=== PATIENT | male | born 1945 ===

== ENCOUNTER 2025-03-04 13:07 | Inpatient (IN) | payer MEDICARE, SELFPAY ==
[2025-03-04 13:40] VITALS: BP 136/87; PULSE 79; RESP 18; TEMP 36.7; O2SAT 95
[2025-03-04 13:52] VITALS: BMI 24.6
--- NOTE | 2025-03-04 15:00 | PC.ADMIT ---
Addendum entered by Aruna Foster RN 03/04/25 19:10: Patient stated that he had episodes of high blood pressure but I didn't find the actual HTN diagnosis. He also has CAD. Original Note: 80 year old male admitted to 186-2 at 1340 from [facility] for Delusions, AMS and Paranoia. He is a CV. He believes that he has created a serious problem with his computer and phone that he can prove it. He thinks that he can blow up cell phones around the world. He is preoccupied with the computer, phones and TV'S. He is alert and oriented x3 with some insight into his issues, saying that he has some dementia. He denies delusions, anxiety and depression. He is very talkative. His eye contact is good and he is responsive, laughing and smiling. He would like to get better and go back home. He also has Hx of HTN and Hyperlipidemia. HX [place] in 1992 and 1994. He is forgetful but pleasant. He ambulates independently and is continent of bowel and bladder. He denies pain, SI, Hi and and behavioral problems. His appearance is disheveled and he is dressed in [facility]. He was oriented to the unit, signed all ANIL and Patient Valuable List. He has allergies to Shellfish products and Niacin. Colette Gustafson QC CHEMIST updated on patient's arrival. He never smoked and occasionally drinks alcohol. Vitals [id number]/87 with O2 Sat 95% on room air. Weight 77.9kg and height 5'10 .
--- OUTSIDE RECORDS SUMMARY | 2025-03-04 15:29 | XMS_ITS | Encounter Summary ---
Author Organization [facility] Address [address] [place] [address] Care Team Providers Care Biology Research Assistant Name Role Phone Daniel Thomas MD Unavailable Alejandra Prince MD Primary Care Provider Dean Conley MD Unavailable [phone] Opal Soto MD Unavailable Alejandra Prince MD Unavailable [phone] Alejandra Prince MD Unavailable [phone] Encounter Details Date Type Department Care Team (Latest Contact Info) Description 03/03/2025 Travel Social History Tobacco Use Types Packs/Day Years Used Date Smoking Tobacco: Never Smokeless Tobacco: Never Alcohol Use Standard Drinks/Week Comments Yes 0 (1 standard drink = 0.6 oz pur e alcohol) infrequently, 1 per month Humiliation, Afraid, Rape, and Kick questionnair e Answer Date Recorded Within the last year, have y ou been afraid of your partner or ex-partner? No 03/03/2025 Emotionally Abused Not on file 03/03/2025 Physically Abused Not on file 03/03/2025 Sexually Abused Not on file 03/03/2025 Overall Financial Resource Strain (CARDIA) Answe r Date Recorded How hard is it for you to pa y for the very basics like food, housing, medical care, and heating? Not hard at all 03/03/2025 Hunger Vital Sign Answer Date Recorded Within the past 12 months, y ou worried that your food would run out before you got the money to buy more. Never true 03/03/20 25 Ran Out of Food in the Last Year Not on file 03/03/2025 PRAPARE - Transportation Answer Date Re corded In the past 12 months, has l ack of transportation kept you from medical appointments or from getting medications? No 02/09 In the past 12 months, has l ack of transportation kept you from meetings, work, or from getting things needed for daily living? No 03/03/2025 Housing Stability Vital Sign Answer Rehan e Recorded In the last 12 months, was t here a time when you were not able to pay the mortgage or rent on time? No 03/03/2025 Number of Times Moved in the Last Year Not on fi le 03/03/2025 At any time in the past 12 m [facility], were you homeless or living in a prison (including now)? No 03/03/2025 [facility] Utilities Answer Date Recorded In the past 12 months has th e [employer], gas, oil, or water company threatened to shut off services in your home? No 03/03/2025 Food Insecurity Answer Date Recorded Within the past 12 months, y ou worried that your food would run out before you got the money to buy more. Never true 03/03/20 25 Ran Out of Food in the Last Year Not on file 03/03/2025 Intimate Partner Violence Answer Date R ecorded Emotionally Abused Not on file 03/03/2025 Within the last year, have y ou been afraid of your partner or ex-partner? No 03/03/2025 Physically Abused Not on file 03/03/2025 Sexually Abused Not on file 03/03/2025 Housing Stability Answer Date Recorded Unstable Housing in the Last Year Not on file 03/03/2025 In the last 12 months, was t here a time when you were not able to pay the mortgage or rent on time? No 03/03/2025 Number of Places Lived in the Last Year Not on f ile 03/03/2025 AUDIT C Answer Date Recorded How often have you had a dri nk containing alcohol, in the past year? 1 03/03/2025 How many standard drinks con taining alcohol have you had on a typical day when you are drinking, in the past year? 0 0 03/03/2025 How often have you had six o r more drinks on one occasion, in the past year? 0 03/03/2025 Sex and Gender Information Value Date Recorded Sex Assigned at Male 01/02/2019 12:58 PM EDT Legal Sex Male 8:56 AM EDT Gender Identity Male 01/02/2019 12:58 PM EDT Sexual Orientation Not on file documented as of this encounter Functional Status * Is the person deaf or does he/she have serious difficulty hearing? Answer Date of Assessment Author Yes 09/07/2024 2:52 PM EST documented as of this encounter Plan of Treatment Upcoming Encounters Date Type Department Care Team (Late st Contact Info) Description 06/16/2025 3:00 PM EDT Appointment [facility] Cardiology Testing, [address] [address] Dar Serna MD [address] [place] [id number] with Resource 06/19/2025 10:00 AM EDT Office Visit [facility], [address] [address] Dar Serna MD [address] [place] [id number] In Person with Physician 09/07/2025 10:00 AM EST Office Visit [facility] [address] [place] [address] Karey Archer NP [address] [place] [address] In Person with Nurse Practitioner documented as of this encounter Visit Diagnoses Not on filedocumented in this encounter Care Teams Biology Research Assistant Relationship Specialty Start Date End Date Alejandra Prince MD [address] [place] [address] PCP - General Internal Medicine 6/9/21 Alejandra Prince MD [address] [place] [address] PCP - Insurance Assigned PCP 10/19/22 Daniel Thomas MD 01/01/19 Dean Conley MD [address] [facility] [place] [address] Referring Physician Hematology/Oncology 05/23/21 Opal Soto MD [address] [place] [address] [address] [place] [address] Referring Physician Gastroenterology 10/23/21 Alejandra Prince MD [address] [place] [address] Internal Medicine 02/16/21 documented as of this encounter
--- NOTE | 2025-03-04 18:36 | PC.NURSE ---
overcoiler completed on admission, skin clear, no issues. Patient also stated that he had a sleep apnea test which was positive but he tried using a CPAP and didn't like it because it was too cumbersome, so he stopped using it. His appetite has been poor and when he was so involved with his computer he would forget to eat. He also wasn't bathing and brushing his teeth because of his high anxiety about the computer and problems that he caused. At one point he used a cane at home for an unstable gait but he does not use one now.
[2025-03-04 20:00] VITALS: BP 161/91; PULSE 85; RESP 18; TEMP 36.6; O2SAT 97
[2025-03-05 08:13] VITALS: BP 140/62; PULSE 85; RESP 18; TEMP 36.4; O2SAT 97
[2025-03-05 08:35] LABS: Hemoglobin A1C 169.7411 umol/L; Total Hemoglobin (HGBA1C) 4476.0912 umol/L
[2025-03-05] MEDS: Metoprolol Succinate ER 25 MG TAB.ER.24H PO (08:35)
[2025-03-05 08:41] LABS: Alanine Aminotransferase 22 U/L (0-40); Albumin Level 4.0 g/dL (3.5-5.0); Alkaline Phosphatase 72 U/L (39-117); Anion Gap 14 (12-20); Aspartate Amino Transferase 28 U/L (5-37); Blood Urea Nitrogen 20 mg/dL (9-16); Calcium 9.5 mg/dL (8.4-10.2); Carbon Dioxide 25 mmol/L (22-29); Chloride 105 mmol/L (96-108); Cholesterol 116 mg/dL (<200); Creatinine Clr Calc Pharmacy 55.2; Estimated Glomerular Filt Rate > 60; HDL Cholesterol 53 mg/dL (>40); Potassium 3.9 mmol/L (3.3-5.1); Sodium 140 mmol/L (135-145); Total Protein 7.5 g/dL (6.5-8.0); Triglycerides 112 mg/dL (<150)
[2025-03-05 08:57] LABS: Thyroid Stimulating Hormone 1.60 uIU/mL (0.32-4.0)
[2025-03-05 09:12] LABS: Folate 12.5 ng/mL (> or = 4.0); Vitamin B12 909 pg/mL (200-900)
--- NOTE | 2025-03-05 09:12 | HO.PSYADMNOT ---
HPI Date of Service: 03/05/25 Chief Complaint: Delusional d/o Sources of Information: patient interviewed, chart reviewed and crisis/core team assessment reviewed HPI Subjective Notes: Chau Warning and Conditional Voluntary Narrative: Mr. Qiu is a 80 year-old male with hx of vascular dementia who was brought to [facility] as he was presenting with delusions of being able to control world events such as conflict between [place] and [place], and blood pressure machines in the hospital and TV. He does not have prior hx of mental illness or psychosis. In the ED, pt had reported that he was involved in cyber investigations and beliving that he is the cause of the war. Pertinent labs include CBC with mildly elevated WBC (11), CMP no electrolyte abnormalities, Cr. 1.10, BUN 20, LFTs wnl. UA without signs of UTI. TSH 1.76. EKG sinus rhythm, Qtc 447. On the unit, pt presents as very pleasant and cooperative. He reports he has been very concern with world events including [place] attacks on [place], and now [place]. He reports he is Rastafari and lived in [place]. He also reports he has a masters degree in History and [employer]. He reports he has been tracing recent commentaries of world leaders and could see a trail leading up to bombing of the [place] to [place]. When asked if he believes he caused this conflict, he denies. He does say that it has impacted him in a personal way and he feels saddened by world events. 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 He does report he can be obsessive when it comes to reading news outlets and following international press news. He denies SI/HI. He denies VH/AH. He does report some memory decline and being more forgetful. He reports he needs more support from his children. He currently lives with his daughter. No prior psychiatric hx. No hx of suicide attempt. He has never been on psychotropic medications. He was started at [facility] on risperidone. Past Psychiatric History: Inpt: none OP: none Past medication trials: recently started on risperidone. Medical Evaluation Reviewed: Yes [facility] Family History: father schizophrenia Social History: Pt born in [place], [place]. He was for almost 50 years until of covid 4 years ago. He has two adult children, daughter and son. He work as computer assistant. He has a masters in computer science and History. Substance History: none Trauma History: denies Diagnostics Vital Signs (24Hr): Vital Signs - 24 hr 03/04/25 13:40 03/04/25 20:00 03/05/25 08:13 Temperature 98.1 F 97.8 F 97.5 F Pulse Rate 79 85 85 Respiratory Rate 18 18 18 Blood Pressure 136/87 161/91 H 140/62 H Pulse Oximetry 95 97 97 Oxygen Delivery Method Room Air Room Air Room Air BMI result Body Mass Index 24.6 Labs 03/05/25 07:41 Labs: Laboratory Results - last 48 hr 03/05/25 07:41 Sodium 140 Potassium 3.9 Chloride 105 Carbon Dioxide 25 Anion Gap 14 BUN 20 H Creatinine 1.12 Estim Creat Clear Calc 55.2 Estimated GFR > 60 Random Glucose 104 Estimat Average Glucose 114 Hemoglobin A1c % 5.6 Calcium 9.5 Total Bilirubin 1.0 AST 28 ALT 22 Alkaline Phosphatase 72 Total Protein 7.5 Albumin 4.0 Triglycerides 112 Cholesterol 116 LDL Cholesterol, Calc 41 HDL Cholesterol 53 Vitamin B12 909 H Folate 12.5 TSH 1.60 Meds/Allergies Meds Home Medications ?Medication ?Instructions ?Recorded ?Confirmed ?Type aspirin 81 mg PO 1XD 03/04/25 03/04/25 History atorvastatin 20 mg tablet (Lipitor) mg PO Hyperlipidemia 03/04/25 History metoprolol succinate 25 mg 25 mg PO DAILY 03/04/25 03/04/25 History tablet,extended release 24 hr risperidone 0.25 mg PO BID Psychosis 03/04/25 03/04/25 History simvastatin 40 mg tablet 40 mg PO BEDTIME 03/04/25 03/04/25 History Allergies Allergies Allergy/AdvReac Type Severity Reaction Status Date / Time niacin Allergy Unknown Verified 03/04/25 15:23 shellfish derived Allergy Unknown Verified 03/04/25 15:23 Mental Status Exam Mental Status Exam Narrative: Appearance: wearing casual clothing, fair hygiene, in NAD behavior: cooperative, friendly Psychomotor: no agitation or retardation noted Speech: clear, talkative, but not pressured, spontaneous TP:tangential TC: feeling well here, open to assessment Mood: good Affect: congruent SI: none HI: none VH/AH: no overt signs Delusions: no overt delusional content Insight/judgment: fair x 2, Memory/cog: alert, oriented to place, month, year. MOCA , ACL 3.6 Assessment & Plan Assessment & Plan (1) Vascular dementia with behavior disturbance: Status: Acute Code(s): F01.518 - Vascular dementia, unspecified severity, with other behavioral disturbance Plan Mr. Lau is a 80 year-old male with hx of vascular dementia, who was brought on 03/03 to [facility] due to increase delusional ideas of being responsible for world events and being able to change number in pressure machine at the hospital. He was started on risperidone while at [facility]. He currently does not present with delusions. He is focused on world events and seems to have in depth grasp about given his personal experience and background in history. It is possible more delusional connection to world events has decrease since started on risperidone. MOCA/ACL show moderate/severe cognitive impairments in high functions of the brain that include executive function. PLAN 1. Admit to S1, CV, 15 minutes checks 2. continue risperidone. 3. obtain collateral information 4. Aftercare planning Patient educated on: diagnosis and medication risk/benefits Reason for continued inpatient stay Substantial Risk for: inability to function Statement Statement: I have reviewed the history and physical and performed a pertinent examination on my patient. No changes have occurred unless specified. If the History and Physical was not performed prior to admission, the Hospitalist's service will be consulted for completing the admission physical. Time Spent With Patient Time: Total time managing care of this patient today ____ minutes.
--- NOTE | 2025-03-05 11:38 | HO.PM.IMCN ---
History of Present Illness Data of Consult Service Date: 03/05/25 Primary Care Provider: Unknown Physician HPI Reason for consult: Medical management 80-year-old male with past medical history of coronary artery disease, chronic degenerative disc disease, depression, history of nephrolithiasis, hyperlipidemia, low back pain, history of NH and cardiac catheterization in 1994, ataxia, ODILON, secondary polycythemia, cognitive impairment. Presented to [facility] with increased paranoia and delusions. His lab work was unremarkable, TSH within normal limits, tox screen was negative. He is admitted to [facility] for further care. Review of Systems Review of Systems: Denies any shortness of breath, chest pain, dizziness, lightheadedness, abdominal pain or discomfort, nausea vomiting or diarrhea PMFSH Social History Household Members: Children Housing: [facility] Do you presently have visiting nurse or other home services: No (Patient recently has not been attending to his ADL'S, has poor appetite.) Patient Tobacco Use Status: Never used Tobacco Smoked in Last 30 Days: No e-Cigarette/Vaping Use: Never Used Patient Interested in Nicotine Replacement: No Patient Given Instructions on How to Stop Smoking: No Second Hand Smoke Exposure: No Currently Displaying Signs/Symptoms of Drug Intoxication Withdrawal: No Have you been hit, kicked, punched, or otherwise hurt by someone within the past year? If so, by whom?: No Do you feel safe in your current relationship?: Yes Is there a partner from a previous relationship who is making you feel unsafe now?: No Are you made to feel afraid or neglected: No [facility] Practices: [facility] Advance Directives: No Advance Directives Information Provided: Yes Do you have thoughts of harming others: None Do you have a plan to hurt others: No Plan Recently lost weight without trying: No Eating poorly because of decreased appetite: Yes Nutrition Risks: No Nutritional Risk Poor oral hygiene: Yes Meds Allergies Allergy/AdvReac Type Severity Reaction Status Date / Time niacin Allergy Unknown Verified 03/04/25 15:23 shellfish derived Allergy Unknown Verified 03/04/25 15:23 Active Medications: Current Medications Acetaminophen (Acetaminophen 325 Mg Tablet) 650 mg PO Q6H PRN PRN Reason: Headache/Pain, Scale 1-10 Al Hydroxide/Mg Hydroxide (Magnesium Hydrox/Alum Hydrox 30 Ml Oral.Susp) 30 ml PO Q6H PRN PRN Reason: Heartburn/Nausea Aspirin (Aspirin 81 Mg Tab.Chew) 81 mg PO DAILY [facility] Last Admin: 03/05/25 08:35 Dose: 81 mg Atorvastatin Calcium (Atorvastatin Calcium 20 Mg Tablet) 20 mg PO BEDTIME [facility] Last Admin: 03/04/25 20:35 Dose: 20 mg Magnesium Hydroxide (Milk Of Magnesia 30 Ml Oral.Susp) 30 ml PO DAILY PRN PRN Reason: Constipation Metoprolol Succinate (Metoprolol Succinate Er 25 Mg Tab.Er.24h) 25 mg PO DAILY [facility]; Protocol Last Admin: 03/05/25 08:35 Dose: 25 mg Risperidone (Risperidone 0.25 Mg Tablet) 0.25 mg PO BID [facility] Last Admin: 03/05/25 08:35 Dose: 0.25 mg Trazodone HCl (Trazodone Hcl 50 Mg Tablet) 50 mg PO BEDTIME PRN PRN Reason: Insomnia Home Medications ?Medication ?Instructions ?Recorded ?Confirmed ?Last Taken ?Type aspirin 81 mg PO 1XD 03/04/25 03/04/25 Unknown History atorvastatin 20 mg tablet (Lipitor) mg PO Hyperlipidemia 03/04/25 Unknown History metoprolol succinate 25 mg 25 mg PO DAILY 03/04/25 03/04/25 Unknown History tablet,extended release 24 hr risperidone 0.25 mg PO BID Psychosis 03/04/25 03/04/25 Unknown History simvastatin 40 mg tablet 40 mg PO BEDTIME 03/04/25 03/04/25 Unknown History Physical Exam Vital Signs and Narrative: Vital Signs: Last Vital Signs Temp 97.5 F 03/05/25 08:13 Pulse 85 03/05/25 08:13 Resp 18 03/05/25 08:13 BP 140/62 H 03/05/25 08:13 Pulse Ox 97 03/05/25 08:13 O2 Del Method Room Air 03/05/25 08:13 BMI result Body Mass Index 24.6 CONST: Alert and oriented, in NAD. Well nourished HEENT: Normocephalic, atraumatic, MMM, Eyes clear, Neck supple RESP: Lungs clear, RRR even and regular HEART:,RRR, S1, S2. No edema GI:Abdomen Soft NT, ND. + BS times four :Deferred SKIN: Warm dry and intact, no visible lesions or rashes NEURO:CN II-XII Intact bilaterally, Sensation intact. Speech clear PSYCH: Normal affect Results Labs 03/05/25 07:41 Labs: Laboratory Results - last 24 hr 03/05/25 07:41 Anion Gap 14 Estim Creat Clear Calc 55.2 Estimated GFR > 60 Random Glucose 104 Estimat Average Glucose 114 Hemoglobin A1c % 5.6 Calcium 9.5 Total Bilirubin 1.0 AST 28 ALT 22 Alkaline Phosphatase 72 Total Protein 7.5 Albumin 4.0 Triglycerides 112 Cholesterol 116 LDL Cholesterol, Calc 41 HDL Cholesterol 53 Vitamin B12 909 H Folate 12.5 TSH 1.60 Assessment and Plan (1) HTN (hypertension): Status: Acute Plan Depression, cognitive impairment, paranoia and delusions Treatment per psychiatric team Coronary artery disease, hypertension, hyperlipidemia Continue atorvastatin, metoprolol and aspirin Thank you for allowing me to participate in the care of this patient. We will follow as needed. Please reconsult of any acute concerns or issues arise
[2025-03-05 13:20] VITALS: BMI 25.0
[2025-03-05 19:55] VITALS: BP 139/71; PULSE 76; RESP 16; TEMP 36.1; O2SAT 98
[2025-03-06 08:00] VITALS: BP 160/95; PULSE 88; RESP 16; TEMP 36.6; O2SAT 98
[2025-03-06] MEDS: Metoprolol Succinate ER 25 MG TAB.ER.24H PO (08:47)
--- NOTE | 2025-03-06 12:00 | HO.PSYCHPN ---
Subjective Subjective Date of Service: 03/06/25 Reason For Visit: Delusional d/o Subjective Notes: Conditional Voluntary Interim History: Pt slept through the night. he reports doing well, feeling better. No SI/HI. No overt psychosis. no delusions. He does report some connection between algorithm of internet connected with food orders here in the hospital. He is pleasant on approach. no behavioral concerns. Review of Systems Review of Systems Denies any shortness of breath, chest pain, dizziness, lightheadedness, abdominal pain or discomfort, nausea vomiting or diarrhea Mental Status Exam Mental Status Exam Narrative: Appearance: wearing casual clothing, fair hygiene, in NAD behavior: cooperative, friendly Psychomotor: no agitation or retardation noted Speech: clear, talkative, but not pressured, spontaneous TP:tangential TC: feeling well here, open to assessment Mood: good Affect: congruent SI: none HI: none VH/AH: no overt signs Delusions: no overt delusional content Insight/judgment: fair x 2, Memory/cog: alert, oriented to place, month, year. MOCA , ACL 3.6 Diagnostics Vital Signs (24Hr): Vital Signs - 24 hr 03/05/25 19:55 Temperature 96.9 F Pulse Rate 76 Respiratory Rate 16 Blood Pressure 139/71 Pulse Oximetry 98 Oxygen Delivery Method Room Air BMI result Body Mass Index 25.0 Labs 03/05/25 07:41 Labs: Laboratory Results - last 48 hr 03/05/25 07:41 Sodium 140 Potassium 3.9 Chloride 105 Carbon Dioxide 25 Anion Gap 14 BUN 20 H Creatinine 1.12 Estim Creat Clear Calc 55.2 Estimated GFR > 60 Random Glucose 104 Estimat Average Glucose 114 Hemoglobin A1c % 5.6 Calcium 9.5 Total Bilirubin 1.0 AST 28 ALT 22 Alkaline Phosphatase 72 Total Protein 7.5 Albumin 4.0 Triglycerides 112 Cholesterol 116 LDL Cholesterol, Calc 41 HDL Cholesterol 53 Vitamin B12 909 H Folate 12.5 TSH 1.60 Medications Medications Current Medications Acetaminophen (Acetaminophen 325 Mg Tablet) 650 mg PO Q6H PRN PRN Reason: Headache/Pain, Scale 1-10 Al Hydroxide/Mg Hydroxide (Magnesium Hydrox/Alum Hydrox 30 Ml Oral.Susp) 30 ml PO Q6H PRN PRN Reason: Heartburn/Nausea Aspirin (Aspirin 81 Mg Tab.Chew) 81 mg PO DAILY [facility] OF [facility] Last Admin: 03/06/25 08:47 Dose: 81 mg Atorvastatin Calcium (Atorvastatin Calcium 20 Mg Tablet) 20 mg PO BEDTIME ON [facility] OF [facility] Last Admin: 03/05/25 19:43 Dose: 20 mg Magnesium Hydroxide (Milk Of Magnesia 30 Ml Oral.Susp) 30 ml PO DAILY PRN PRN Reason: Constipation Metoprolol Succinate (Metoprolol Succinate Er 25 Mg Tab.Er.24h) 25 mg PO DAILY [facility]; Protocol Last Admin: 03/06/25 08:47 Dose: 25 mg Risperidone (Risperidone 0.25 Mg Tablet) 0.25 mg PO BID [facility] Last Admin: 03/06/25 08:47 Dose: 0.25 mg Trazodone HCl (Trazodone Hcl 50 Mg Tablet) 50 mg PO BEDTIME PRN PRN Reason: Insomnia Allergies Allergies Allergy/AdvReac Type Severity Reaction Status Date / Time niacin Allergy Unknown Verified 03/04/25 15:23 shellfish derived Allergy Unknown Verified 03/04/25 15:23 Assessment & Plan Assessment & Plan (1) Vascular dementia with behavior disturbance: Status: Acute Code(s): F01.518 - Vascular dementia, unspecified severity, with other behavioral disturbance Plan Mr. Lau is a 80 year-old male with hx of vascular dementia, who was brought on 03/03 to [facility] due to increase delusional ideas of being responsible for world events and being able to change number in pressure machine at the hospital. He was started on risperidone while at [facility]. He currently does not present with delusions. He is focused on world events and seems to have in depth grasp about given his personal experience and background in history. It is possible more delusional connection to world events has decrease since started on risperidone. MOCA/ACL show moderate/severe cognitive impairments in high functions of the brain that include executive function. PLAN continue tx. Reason for continued inpatient stay Substantial Risk for: inability to function Time Spent With Patient Time: Total time managing care of this patient today ____ minutes.
[2025-03-06 19:55] VITALS: BP 179/83; PULSE 73; RESP 16; TEMP 36.8; O2SAT 100
[2025-03-07 08:00] VITALS: PULSE 86; RESP 14; TEMP 2.3; TEMP 36.2; O2SAT 96
[2025-03-07 09:09] VITALS: BP 163/83; PULSE 86; RESP 16; TEMP 2.3; TEMP 36.2
[2025-03-07] MEDS: Metoprolol Succinate ER 25 MG TAB.ER.24H PO (09:11)
--- NOTE | 2025-03-07 19:24 | HO.PSYCHPN ---
Subjective Subjective Date of Service: 03/07/25 Reason For Visit: Delusional d/o Subjective Notes: Conditional Voluntary Interim History: Pt slept through the night.He has been visible on the unit, social with select peers. he reports doing well, feeling better. No SI/HI. No overt psychosis. no delusions. He does report some connection between [facility] of internet connected with food orders here in the hospital. He is pleasant on approach. no behavioral concerns. Review of Systems Review of Systems Denies any shortness of breath, chest pain, dizziness, lightheadedness, abdominal pain or discomfort, nausea vomiting or diarrhea Mental Status Exam Mental Status Exam Narrative: Appearance: wearing casual clothing, fair hygiene, in NAD behavior: cooperative, friendly Psychomotor: no agitation or retardation noted Speech: clear, talkative, but not pressured, spontaneous TP:tangential TC: feeling well here, open to assessment Mood: good Affect: congruent SI: none HI: none VH/AH: no overt signs Delusions: no overt delusional content Insight/judgment: fair x 2, Memory/cog: alert, oriented to place, month, year. MOCA 20/, ACL 3.6 Diagnostics Vital Signs (24Hr): Vital Signs - 24 hr 03/06/25 19:55 03/07/25 08:00 03/07/25 09:09 Temperature 98.3 F 36.2 F L 36.2 F L Pulse Rate 73 86 86 Respiratory Rate 16 14 16 Blood Pressure 179/83 H 163/83 H Pulse Oximetry 100 96 Oxygen Delivery Method Room Air Room Air Room Air BMI result Body Mass Index 25.0 Labs 03/05/25 07:41 Medications Medications Current Medications Acetaminophen (Acetaminophen 325 Mg Tablet) 650 mg PO Q6H PRN PRN Reason: Headache/Pain, Scale 1-10 Al Hydroxide/Mg Hydroxide (Magnesium Hydrox/Alum Hydrox 30 Ml Oral.Susp) 30 ml PO Q6H PRN PRN Reason: Heartburn/Nausea Aspirin (Aspirin 81 Mg Tab.Chew) 81 mg PO DAILY [facility] Last Admin: 03/07/25 09:11 Dose: 81 mg Atorvastatin Calcium (Atorvastatin Calcium 20 Mg Tablet) 20 mg PO BEDTIME [facility] Last Admin: 03/06/25 19:56 Dose: 20 mg Magnesium Hydroxide (Milk Of Magnesia 30 Ml Oral.Susp) 30 ml PO DAILY PRN PRN Reason: Constipation Metoprolol Succinate (Metoprolol Succinate Er 25 Mg Tab.Er.24h) 25 mg PO DAILY [facility]; Protocol Last Admin: 03/07/25 09:11 Dose: 25 mg Risperidone (Risperidone 0.25 Mg Tablet) 0.25 mg PO BID [facility] Last Admin: 03/07/25 09:11 Dose: 0.25 mg Trazodone HCl (Trazodone Hcl 50 Mg Tablet) 50 mg PO BEDTIME PRN PRN Reason: Insomnia Allergies Allergies Allergy/AdvReac Type Severity Reaction Status Date / Time niacin Allergy Unknown Verified 03/04/25 15:23 shellfish derived Allergy Unknown Verified 03/04/25 15:23 Assessment & Plan Assessment & Plan (1) Vascular dementia with behavior disturbance: Status: Acute Code(s): F01.518 - Vascular dementia, unspecified severity, with other behavioral disturbance Plan Mr. Lau is a 80 year-old male with hx of vascular dementia, who was brought on 03/03 to [facility] due to increase delusional ideas of being responsible for world events and being able to change number in pressure machine at the hospital. He was started on risperidone while at [place]. He currently does not present with delusions. He is focused on world events and seems to have in depth grasp about given his personal experience and background in history. It is possible more delusional connection to world events has decrease since started on risperidone. MOCA/ACL show moderate/severe cognitive impairments in high functions of the brain that include executive function. PLAN continue tx. Reason for continued inpatient stay Substantial Risk for: inability to function Time Spent With Patient Time: Total time managing care of this patient today ____ minutes.
[2025-03-07 20:01] VITALS: BP 146/80; PULSE 78; RESP 16; TEMP 36.8; O2SAT 98
[2025-03-08 08:00] VITALS: BP 118/72; PULSE 72; RESP 18; TEMP 36.2; O2SAT 97
[2025-03-08] MEDS: Metoprolol Succinate ER 25 MG TAB.ER.24H PO (08:03)
--- NOTE | 2025-03-08 17:45 | P.PNPSI_ITS ---
Subjective Subjective Date of Service: 03/08/25 Reason For Visit: Delusional d/o Interim History: Pt slept through the night.He has been visible on the unit, social with select peers. he reports doing well, feeling better. No SI/HI. No overt psychosis. no delusions. He does report some connection between [employer] of internet connected with food orders here in the hospital. He is pleasant on approach. no behavioral concerns. Review of Systems Review of Systems Denies any shortness of breath, chest pain, dizziness, lightheadedness, abdominal pain or discomfort, nausea vomiting or diarrhea Mental Status Exam Mental Status Exam Narrative: Appearance: wearing casual clothing, fair hygiene, in NAD behavior: cooperative, friendly Psychomotor: no agitation or retardation noted Speech: clear, talkative, but not pressured, spontaneous TP:tangential TC: feeling well here, open to assessment Mood: good Affect: congruent SI: none HI: none VH/AH: no overt signs Delusions: no overt delusional content Insight/judgment: fair x 2, Memory/cog: alert, oriented to place, month, year. MOCA , ACL 3.6 Diagnostics Vital Signs (24Hr): Vital Signs - 24 hr 03/07/25 20:01 03/08/25 08:00 Temperature 98.2 F 97.2 F Pulse Rate 78 72 Respiratory Rate 16 18 Blood Pressure 146/80 H 118/72 Pulse Oximetry 98 97 Oxygen Delivery Method Room Air Room Air BMI result Body Mass Index 25.0 Labs 03/05/25 07:41 Medications Medications Current Medications Acetaminophen (Acetaminophen 325 Mg Tablet) 650 mg PO Q6H PRN PRN Reason: Headache/Pain, Scale 1-10 Al Hydroxide/Mg Hydroxide (Magnesium Hydrox/Alum Hydrox 30 Ml Oral.Susp) 30 ml PO Q6H PRN PRN Reason: Heartburn/Nausea Aspirin (Aspirin 81 Mg Tab.Chew) 81 mg PO DAILY [facility] Last Admin: 03/08/25 08:03 Dose: 81 mg Atorvastatin Calcium (Atorvastatin Calcium 20 Mg Tablet) 20 mg PO BEDTIME [facility] Last Admin: 03/07/25 20:06 Dose: 20 mg Magnesium Hydroxide (Milk Of Magnesia 30 Ml Oral.Susp) 30 ml PO DAILY PRN PRN Reason: Constipation Metoprolol Succinate (Metoprolol Succinate Er 25 Mg Tab.Er.24h) 25 mg PO DAILY [facility]; Protocol Last Admin: 03/08/25 08:03 Dose: 25 mg Risperidone (Risperidone 0.25 Mg Tablet) 0.5 mg PO BID [facility] Trazodone HCl (Trazodone Hcl 50 Mg Tablet) 50 mg PO BEDTIME PRN PRN Reason: Insomnia Last Admin: 03/07/25 20:06 Dose: 50 mg Allergies Allergies Allergy/AdvReac Type Severity Reaction Status Date / Time niacin Allergy Unknown Verified 03/04/25 15:23 shellfish derived Allergy Unknown Verified 03/04/25 15:23 Assessment & Plan Assessment & Plan (1) Vascular dementia with behavior disturbance: Status: Acute Code(s): F01.518 - Vascular dementia, unspecified severity, with other behavioral disturbance Plan Mr. Lau is a 80 year-old male with hx of vascular dementia, who was brought on 03/03 to [facility] due to increase delusional ideas of being responsible for world events and being able to change number in pressure machine at the hospital. He was started on risperidone while at [place]. He currently does not present with delusions. He is focused on world events and seems to have in depth grasp about given his personal experience and background in history. It is possible more delusional connection to world events has decrease since started on risperidone. MOCA/ACL show moderate/severe cognitive impairments in high functions of the brain that include executive function. PLAN 03/08 increase risperidone 0.5mg po BID. Reason for continued inpatient stay Substantial Risk for: inability to function Time Spent With Patient Time: Total time managing care of this patient today ____ minutes.
[2025-03-08 20:00] VITALS: BP 152/67; PULSE 70; RESP 18; TEMP 2.6; TEMP 36.6; O2SAT 97
[2025-03-09 09:07] VITALS: BP 140/91; PULSE 82; RESP 18; TEMP 36.2; O2SAT 98
[2025-03-09] MEDS: Metoprolol Succinate ER 25 MG TAB.ER.24H PO (09:19)
--- NOTE | 2025-03-09 11:14 | HO.PSYCHPN ---
Subjective Subjective Date of Service: 03/09/25 Reason For Visit: Delusional d/o Subjective Notes: Conditional Voluntary Interim History: Pt slept through the night. His mood is euthymic, and he reports feeling well here on the unit. He reports there are a lot of connection between the internet and how this place (referring to the hospital) works. He talks algorith that extrapolate into how food services and other services in the hospital are connected and influenced by his past internet searches which he thinks have given him an advantage while in the hospital because he gets the food that he orders on the paper given every day. Review of Systems Review of Systems Denies any shortness of breath, chest pain, dizziness, lightheadedness, abdominal pain or discomfort, nausea vomiting or diarrhea Mental Status Exam Mental Status Exam Narrative: Appearance: wearing casual clothing, fair hygiene, in NAD behavior: cooperative, friendly Psychomotor: no agitation or retardation noted Speech: clear, talkative, but not pressured, spontaneous TP:tangential TC: feeling well here, open to assessment Mood: good Affect: congruent SI: none HI: none VH/AH: no overt signs Delusions: no overt delusional content Insight/judgment: fair x 2, Memory/cog: alert, oriented to place, month, year. MOCA , ACL 3.6 Diagnostics Vital Signs (24Hr): Vital Signs - 24 hr 03/08/25 20:00 03/09/25 09:07 Temperature 36.6 F L 97.2 F Pulse Rate 70 82 Respiratory Rate 18 18 Blood Pressure 152/67 H 140/91 H Pulse Oximetry 97 98 Oxygen Delivery Method Room Air Room Air BMI result Body Mass Index 25.0 Labs 03/05/25 07:41 Medications Medications Current Medications Acetaminophen (Acetaminophen 325 Mg Tablet) 650 mg PO Q6H PRN PRN Reason: Headache/Pain, Scale 1-10 Al Hydroxide/Mg Hydroxide (Magnesium Hydrox/Alum Hydrox 30 Ml Oral.Susp) 30 ml PO Q6H PRN PRN Reason: Heartburn/Nausea Aspirin (Aspirin 81 Mg Tab.Chew) 81 mg PO DAILY [facility] Last Admin: 03/09/25 09:20 Dose: 81 mg Atorvastatin Calcium (Atorvastatin Calcium 20 Mg Tablet) 20 mg PO BEDTIME [facility] Last Admin: 03/08/25 20:43 Dose: 20 mg Magnesium Hydroxide (Milk Of Magnesia 30 Ml Oral.Susp) 30 ml PO DAILY PRN PRN Reason: Constipation Metoprolol Succinate (Metoprolol Succinate Er 25 Mg Tab.Er.24h) 25 mg PO DAILY [facility]; Protocol Last Admin: 03/09/25 09:19 Dose: 25 mg Risperidone (Risperidone 0.25 Mg Tablet) 0.5 mg PO BID [facility] Last Admin: 03/09/25 09:19 Dose: 0.5 mg Trazodone HCl (Trazodone Hcl 50 Mg Tablet) 50 mg PO BEDTIME PRN PRN Reason: Insomnia Last Admin: 03/07/25 20:06 Dose: 50 mg Allergies Allergies Allergy/AdvReac Type Severity Reaction Status Date / Time niacin Allergy Unknown Verified 03/04/25 15:23 shellfish derived Allergy Unknown Verified 03/04/25 15:23 Assessment & Plan Assessment & Plan (1) Vascular dementia with behavior disturbance: Status: Acute Code(s): F01.518 - Vascular dementia, unspecified severity, with other behavioral disturbance Plan Mr. Lau is a 80 year-old male with hx of vascular dementia, who was brought on 03/03 to [facility] due to increase delusional ideas of being responsible for world events and being able to change number in pressure machine at the hospital. He was started on risperidone while at [place]. He currently does not present with delusions. He is focused on world events and seems to have in depth grasp about given his personal experience and background in history. It is possible more delusional connection to world events has decrease since started on risperidone. MOCA/ACL show moderate/severe cognitive impairments in high functions of the brain that include executive function. PLAN 03/08 increase risperidone 0.5mg po BID. 03/09 continue tx. Reason for continued inpatient stay Substantial Risk for: inability to function Time Spent With Patient Time: Total time managing care of this patient today ____ minutes.
[2025-03-09 20:00] VITALS: BP 133/65; PULSE 68; RESP 18; TEMP 36.3; O2SAT 95
[2025-03-10 07:55] VITALS: BP 164/88; PULSE 79; RESP 18; TEMP 36.6; O2SAT 97
[2025-03-10] MEDS: Metoprolol Succinate ER 25 MG TAB.ER.24H PO (08:51)
--- NOTE | 2025-03-10 18:59 | P.PNPSI_ITS ---
Subjective Subjective Date of Service: 03/10/25 Reason For Visit: Delusional d/o Interim History: Pt slept through the night. His mood is euthymic, and he reports feeling well here on the unit. He reports there are a lot of connection between the internet and how this place (referring to the hospital) works. He talks algorith that extrapolate into how food services and other services in the hospital are connected and influenced by his past internet searches which he thinks have given him an advantage while in the hospital because he gets the food that he orders on the paper given every day. He reports he decided that eventually he will move with his son in [place]. He will go back to his condo with his daughter. Medication Compliance: Yes Review of Systems Review of Systems Denies any shortness of breath, chest pain, dizziness, lightheadedness, abdominal pain or discomfort, nausea vomiting or diarrhea Mental Status Exam Mental Status Exam Narrative: Appearance: wearing casual clothing, fair hygiene, in NAD behavior: cooperative, friendly Psychomotor: no agitation or retardation noted Speech: clear, talkative, but not pressured, spontaneous TP:tangential TC: feeling well here, open to assessment Mood: good Affect: congruent SI: none HI: none VH/AH: no overt signs Delusions: no overt delusional content Insight/judgment: fair x 2, Memory/cog: alert, oriented to place, month, year. MOCA , ACL 3.6 Diagnostics Vital Signs (24Hr): Vital Signs - 24 hr 03/09/25 20:00 03/10/25 07:55 Temperature 97.4 F 97.9 F Pulse Rate 68 79 Respiratory Rate 18 18 Blood Pressure 133/65 164/88 H Pulse Oximetry 95 97 Oxygen Delivery Method Room Air Room Air BMI result Body Mass Index 25.0 Labs 03/05/25 07:41 Medications Medications Current Medications Acetaminophen (Acetaminophen 325 Mg Tablet) 650 mg PO Q6H PRN PRN Reason: Headache/Pain, Scale 1-10 Al Hydroxide/Mg Hydroxide (Magnesium Hydrox/Alum Hydrox 30 Ml Oral.Susp) 30 ml PO Q6H PRN PRN Reason: Heartburn/Nausea Aspirin (Aspirin 81 Mg Tab.Chew) 81 mg PO DAILY [facility] Last Admin: 03/10/25 08:33 Dose: 81 mg Atorvastatin Calcium (Atorvastatin Calcium 20 Mg Tablet) 20 mg PO BEDTIME [facility] Last Admin: 03/09/25 20:54 Dose: 20 mg Magnesium Hydroxide (Milk Of Magnesia 30 Ml Oral.Susp) 30 ml PO DAILY PRN PRN Reason: Constipation Metoprolol Succinate (Metoprolol Succinate Er 25 Mg Tab.Er.24h) 25 mg PO DAILY [facility]; Protocol Last Admin: 03/10/25 08:51 Dose: 25 mg Risperidone (Risperidone 0.25 Mg Tablet) 0.5 mg PO BID [facility] Last Admin: 03/10/25 08:33 Dose: 0.5 mg Trazodone HCl (Trazodone Hcl 50 Mg Tablet) 50 mg PO BEDTIME PRN PRN Reason: Insomnia Last Admin: 03/09/25 20:54 Dose: 50 mg Allergies Allergies Allergy/AdvReac Type Severity Reaction Status Date / Time niacin Allergy Unknown Verified 03/04/25 15:23 shellfish derived Allergy Unknown Verified 03/04/25 15:23 Assessment & Plan Assessment & Plan (1) Vascular dementia with behavior disturbance: Status: Acute Code(s): F01.518 - Vascular dementia, unspecified severity, with other behavioral disturbance Plan Mr. Lau is a 80 year-old male with hx of vascular dementia, who was brought on 03/03 to [facility] due to increase delusional ideas of being responsible for world events and being able to change number in pressure machine at the hospital. He was started on risperidone while at [place]. He currently does not present with delusions. He is focused on world events and seems to have in depth grasp about given his personal experience and background in history. It is possible more delusional connection to world events has decrease since started on risperidone. MOCA/ACL show moderate/severe cognitive impairments in high functions of the brain that include executive function. PLAN 03/08 increase risperidone 0.5mg po BID. 03/09 continue tx 03/10 continue tx. Reason for continued inpatient stay Substantial Risk for: inability to function Time Spent With Patient Time: Total time managing care of this patient today ____ minutes.
[2025-03-10 20:00] VITALS: BP 138/75; PULSE 80; RESP 16; TEMP 36.8; O2SAT 98
[2025-03-11 07:55] VITALS: BP 133/77; PULSE 84; RESP 18; TEMP 36.8; O2SAT 98
[2025-03-11] MEDS: Metoprolol Succinate ER 25 MG TAB.ER.24H PO (08:08)
--- NOTE | 2025-03-11 16:15 | HO.PSYCHPN ---
Subjective Subjective Date of Service: 03/11/25 Reason For Visit: Delusional d/o Interim History: talkative, pleasant. anxious to discuss having a family meeting and planning to go to [facility] with his son. per staff, pleasant, talky. eating well. cheerful. taking meds. slept well. Mental Status Exam Mental Status Exam Narrative: Appearance: wearing casual clothing, fair hygiene, in NAD behavior: cooperative, friendly Psychomotor: no agitation or retardation noted Speech: clear, talkative, but not pressured, spontaneous TP: tangential TC: feeling well here, dispo planning Mood: good Affect: congruent SI: none expressed HI: none expressed VH/AH: no overt signs Delusions: no overt delusional content Insight/judgment: fair x 2, Memory/cog: alert, oriented to place, month, year. MOCA , ACL 3.6 Diagnostics Vital Signs (24Hr): Vital Signs - 24 hr 03/10/25 20:00 03/11/25 07:55 Temperature 98.2 F 98.3 F Pulse Rate 80 84 Respiratory Rate 16 18 Blood Pressure 138/75 133/77 Pulse Oximetry 98 98 Oxygen Delivery Method Room Air Room Air BMI result Body Mass Index 25.0 Labs 03/05/25 07:41 Medications Medications Current Medications Acetaminophen (Acetaminophen 325 Mg Tablet) 650 mg PO Q6H PRN PRN Reason: Headache/Pain, Scale 1-10 Al Hydroxide/Mg Hydroxide (Magnesium Hydrox/Alum Hydrox 30 Ml Oral.Susp) 30 ml PO Q6H PRN PRN Reason: Heartburn/Nausea Aspirin (Aspirin 81 Mg Tab.Chew) 81 mg PO DAILY [facility] Last Admin: 03/11/25 08:08 Dose: 81 mg Atorvastatin Calcium (Atorvastatin Calcium 20 Mg Tablet) 20 mg PO BEDTIME [facility] Last Admin: 03/10/25 20:34 Dose: 20 mg Magnesium Hydroxide (Milk Of Magnesia 30 Ml Oral.Susp) 30 ml PO DAILY PRN PRN Reason: Constipation Metoprolol Succinate (Metoprolol Succinate Er 25 Mg Tab.Er.24h) 25 mg PO DAILY [facility]; Protocol Last Admin: 03/11/25 08:08 Dose: 25 mg Risperidone (Risperidone 0.25 Mg Tablet) 0.5 mg PO BID [facility] Last Admin: 03/11/25 08:08 Dose: 0.5 mg Trazodone HCl (Trazodone Hcl 50 Mg Tablet) 50 mg PO BEDTIME PRN PRN Reason: Insomnia Last Admin: 03/09/25 20:54 Dose: 50 mg Allergies Allergies Allergy/AdvReac Type Severity Reaction Status Date / Time niacin Allergy Unknown Verified 03/04/25 15:23 shellfish derived Allergy Unknown Verified 03/04/25 15:23 Assessment & Plan Assessment & Plan (1) Vascular dementia with behavior disturbance: Status: Acute Code(s): F01.518 - Vascular dementia, unspecified severity, with other behavioral disturbance Plan Mr. Lau is a 80 year-old male with hx of vascular dementia, who was brought on 03/03 to [facility] due to increase delusional ideas of being responsible for world events and being able to change number in pressure machine at the hospital. He was started on risperidone while at [place]. He currently does not present with delusions. He is focused on world events and seems to have in depth grasp about given his personal experience and background in history. It is possible more delusional connection to world events has decrease since started on risperidone. MOCA/ACL show moderate/severe cognitive impairments in high functions of the brain that include executive function. PLAN 03/08 increase risperidone 0.5mg po BID. 03/09 continue tx 03/10 continue tx. 03/11: safe, stable. continue current mgmt. asking for family mtg for dispo planning and to discharge to care of his son in [facility]. Reason for continued inpatient stay Substantial Risk for: inability to function Time Spent With Patient Time: Total time managing care of this patient today ____ minutes.
[2025-03-11 20:00] VITALS: BP 132/64; PULSE 72; RESP 18; TEMP 36.7; O2SAT 96
[2025-03-12 08:00] VITALS: BP 129/65; PULSE 73; RESP 16; TEMP 36.8; O2SAT 96
[2025-03-12] MEDS: Metoprolol Succinate ER 25 MG TAB.ER.24H PO (08:18)
[2025-03-12 09:53] VITALS: BMI 25.2
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
[2025-03-12 20:12] VITALS: BP 140/76; PULSE 82; RESP 16; TEMP 36.9; O2SAT 98
[2025-03-13 07:50] VITALS: BP 146/76; PULSE 75; RESP 16; TEMP 36.7; O2SAT 98
[2025-03-13] MEDS: Metoprolol Succinate ER 25 MG TAB.ER.24H PO (07:52)
[2025-03-13 20:00] VITALS: BP 119/61; PULSE 73; RESP 16; TEMP 36.6; O2SAT 98
--- NOTE | 2025-03-13 21:47 | P.PNPSI_ITS ---
Subjective Subjective Date of Service: 03/13/25 Reason For Visit: Delusional d/o Interim History: no concerns. per staff, pleasant, cooperative.. confused. no delusions. slept 7 hours. Mental Status Exam Mental Status Exam Narrative: Appearance: wearing casual clothing, fair hygiene, in NAD behavior: cooperative, friendly Psychomotor: no agitation or retardation noted Speech: clear, talkative, but not pressured, spontaneous TP: tangential TC: feeling well here, dispo planning Mood: good Affect: congruent SI: none expressed HI: none expressed VH/AH: no overt signs Delusions: no overt delusional content Insight/judgment: fair x 2, Memory/cog: alert, oriented to place, month, year. MOCA /, ACL 3.6 Diagnostics Vital Signs (24Hr): Vital Signs - 24 hr 03/13/25 07:50 Temperature 98.1 F Pulse Rate 75 Respiratory Rate 16 Blood Pressure 146/76 H Pulse Oximetry 98 Oxygen Delivery Method Room Air BMI result Body Mass Index 25.2 Labs 03/05/25 07:41 Medications Medications Current Medications Acetaminophen (Acetaminophen 325 Mg Tablet) 650 mg PO Q6H PRN PRN Reason: Headache/Pain, Scale 1-10 Al Hydroxide/Mg Hydroxide (Magnesium Hydrox/Alum Hydrox 30 Ml Oral.Susp) 30 ml PO Q6H PRN PRN Reason: Heartburn/Nausea Aspirin (Aspirin 81 Mg Tab.Chew) 81 mg PO DAILY [facility] Last Admin: 03/13/25 07:52 Dose: 81 mg Atorvastatin Calcium (Atorvastatin Calcium 20 Mg Tablet) 20 mg PO BEDTIME [facility] Last Admin: 03/13/25 20:46 Dose: 20 mg Magnesium Hydroxide (Milk Of Magnesia 30 Ml Oral.Susp) 30 ml PO DAILY PRN PRN Reason: Constipation Metoprolol Succinate (Metoprolol Succinate Er 25 Mg Tab.Er.24h) 25 mg PO DAILY [facility]; Protocol Last Admin: 03/13/25 07:52 Dose: 25 mg Risperidone (Risperidone 0.25 Mg Tablet) 0.5 mg PO BID [facility] Last Admin: 03/13/25 20:46 Dose: 0.5 mg Trazodone HCl (Trazodone Hcl 50 Mg Tablet) 50 mg PO BEDTIME PRN PRN Reason: Insomnia Last Admin: 03/09/25 20:54 Dose: 50 mg Allergies Allergies Allergy/AdvReac Type Severity Reaction Status Date / Time niacin Allergy Unknown Verified 03/04/25 15:23 shellfish derived Allergy Unknown Verified 03/04/25 15:23 Assessment & Plan Assessment & Plan (1) Vascular dementia with behavior disturbance: Status: Acute Code(s): F01.518 - Vascular dementia, unspecified severity, with other behavioral disturbance Plan Mr. Lau is a 80 year-old male with hx of vascular dementia, who was brought on 03/03 to [facility] due to increase delusional ideas of being responsible for world events and being able to change number in pressure machine at the hospital. He was started on risperidone while at [place]. He currently does not present with delusions. He is focused on world events and seems to have in depth grasp about given his personal experience and background in history. It is possible more delusional connection to world events has decrease since started on risperidone. MOCA/ACL show moderate/severe cognitive impairments in high functions of the brain that include executive function. PLAN 03/08 increase risperidone 0.5mg po BID. 03/09 continue tx 03/10 continue tx. 03/11: safe, stable. continue current mgmt. asking for family mtg for dispo planning and to discharge to care of his son in [facility]. 03/12 continue tx. 03/13: continue current mgmt. stable. Reason for continued inpatient stay Substantial Risk for: inability to function Time Spent With Patient Time: Total time managing care of this patient today ____ minutes.
[2025-03-14 07:47] VITALS: BP 149/77; PULSE 85; RESP 16; TEMP 36.9; O2SAT 96
[2025-03-14] MEDS: Metoprolol Succinate ER 25 MG TAB.ER.24H PO (07:50)
--- NOTE | 2025-03-14 13:15 | P.PNPSI_ITS ---
Subjective Subjective Date of Service: 03/14/25 Reason For Visit: Delusional d/o Interim History: looking well, no complaints or requests. looking forward to family mtg and discharge. per staff, no issues. Mental Status Exam Mental Status Exam Narrative: Appearance: wearing casual clothing, fair hygiene, in NAD behavior: cooperative, friendly Psychomotor: no agitation or retardation noted Speech: clear, talkative, but not pressured, spontaneous TP: tangential TC: feeling well here, dispo planning Mood: good Affect: congruent SI: none expressed HI: none expressed VH/AH: no overt signs Delusions: no overt delusional content Insight/judgment: fair x 2, Memory/cog: alert, oriented to place, month, year. MOCA , ACL 3.6 Diagnostics Vital Signs (24Hr): Vital Signs - 24 hr 03/13/25 20:00 03/14/25 07:47 Temperature 97.9 F 98.4 F Pulse Rate 73 85 Respiratory Rate 16 16 Blood Pressure 119/61 149/77 H Pulse Oximetry 98 96 Oxygen Delivery Method Room Air Room Air BMI result Body Mass Index 25.2 Labs 03/05/25 07:41 Medications Medications Current Medications Acetaminophen (Acetaminophen 325 Mg Tablet) 650 mg PO Q6H PRN PRN Reason: Headache/Pain, Scale 1-10 Al Hydroxide/Mg Hydroxide (Magnesium Hydrox/Alum Hydrox 30 Ml Oral.Susp) 30 ml PO Q6H PRN PRN Reason: Heartburn/Nausea Aspirin (Aspirin 81 Mg Tab.Chew) 81 mg PO DAILY [facility] Last Admin: 03/14/25 07:51 Dose: 81 mg Atorvastatin Calcium (Atorvastatin Calcium 20 Mg Tablet) 20 mg PO BEDTIME [facility] Last Admin: 03/13/25 20:46 Dose: 20 mg Magnesium Hydroxide (Milk Of Magnesia 30 Ml Oral.Susp) 30 ml PO DAILY PRN PRN Reason: Constipation Metoprolol Succinate (Metoprolol Succinate Er 25 Mg Tab.Er.24h) 25 mg PO DAILY [facility]; Protocol Last Admin: 03/14/25 07:50 Dose: 25 mg Risperidone (Risperidone 0.25 Mg Tablet) 0.5 mg PO BID [facility] Last Admin: 03/14/25 07:50 Dose: 0.5 mg Trazodone HCl (Trazodone Hcl 50 Mg Tablet) 50 mg PO BEDTIME PRN PRN Reason: Insomnia Last Admin: 03/09/25 20:54 Dose: 50 mg Allergies Allergies Allergy/AdvReac Type Severity Reaction Status Date / Time niacin Allergy Unknown Verified 03/04/25 15:23 shellfish derived Allergy Unknown Verified 03/04/25 15:23 Assessment & Plan Assessment & Plan (1) Vascular dementia with behavior disturbance: Status: Acute Code(s): F01.518 - Vascular dementia, unspecified severity, with other behavioral disturbance Plan Mr. Lau is a 80 year-old male with hx of vascular dementia, who was brought on 03/03 to [facility] due to increase delusional ideas of being responsible for world events and being able to change number in pressure machine at the hospital. He was started on risperidone while at [place]. He currently does not present with delusions. He is focused on world events and seems to have in depth grasp about given his personal experience and background in history. It is possible more delusional connection to world events has decrease since started on risperidone. MOCA/ACL show moderate/severe cognitive impairments in high functions of the brain that include executive function. PLAN 03/08 increase risperidone 0.5mg po BID. 03/09 continue tx 03/10 continue tx. 03/11: safe, stable. continue current mgmt. asking for family mtg for dispo planning and to discharge to care of his son in [facility]. 03/12 continue tx. 03/13: continue current mgmt. stable. 03/14: as for yesterday. Reason for continued inpatient stay Substantial Risk for: inability to function and rapid decompensation Time Spent With Patient Time: Total time managing care of this patient today ____ minutes.
[2025-03-14 20:00] VITALS: BP 136/77; PULSE 78; RESP 18; TEMP 36.2; O2SAT 98
[2025-03-15 08:06] VITALS: BP 138/88; PULSE 83; TEMP 36.2; O2SAT 97
[2025-03-15] MEDS: Metoprolol Succinate ER 25 MG TAB.ER.24H PO (08:11)
--- NOTE | 2025-03-15 10:12 | HO.PSYCHPN ---
Subjective Subjective Date of Service: 03/15/25 Reason For Visit: Delusional d/o Interim History: no issues, in good spirits. per staff, no issues. Mental Status Exam Mental Status Exam Narrative: Appearance: wearing casual clothing, fair hygiene, in NAD behavior: cooperative, friendly Psychomotor: no agitation or retardation noted Speech: clear, talkative, but not pressured, spontaneous TP: tangential TC: feeling well here, dispo planning Mood: good Affect: congruent SI: none expressed HI: none expressed VH/AH: no overt signs Delusions: no overt delusional content Insight/judgment: fair x 2, Memory/cog: alert, oriented to place, month, year. MOCA , ACL 3.6 Diagnostics Vital Signs (24Hr): Vital Signs - 24 hr 03/14/25 20:00 03/15/25 08:06 Temperature 97.2 F 97.2 F Pulse Rate 78 83 Respiratory Rate 18 Blood Pressure 136/77 138/88 Pulse Oximetry 98 97 Oxygen Delivery Method Room Air BMI result Body Mass Index 25.2 Labs 03/05/25 07:41 Medications Medications Current Medications Acetaminophen (Acetaminophen 325 Mg Tablet) 650 mg PO Q6H PRN PRN Reason: Headache/Pain, Scale 1-10 Al Hydroxide/Mg Hydroxide (Magnesium Hydrox/Alum Hydrox 30 Ml Oral.Susp) 30 ml PO Q6H PRN PRN Reason: Heartburn/Nausea Aspirin (Aspirin 81 Mg Tab.Chew) 81 mg PO DAILY [facility] Last Admin: 03/15/25 08:11 Dose: 81 mg Atorvastatin Calcium (Atorvastatin Calcium 20 Mg Tablet) 20 mg PO BEDTIME [facility] Last Admin: 03/14/25 19:51 Dose: 20 mg Magnesium Hydroxide (Milk Of Magnesia 30 Ml Oral.Susp) 30 ml PO DAILY PRN PRN Reason: Constipation Metoprolol Succinate (Metoprolol Succinate Er 25 Mg Tab.Er.24h) 25 mg PO DAILY [facility]; Protocol Last Admin: 03/15/25 08:11 Dose: 25 mg Risperidone (Risperidone 0.25 Mg Tablet) 0.5 mg PO BID [facility] Last Admin: 03/15/25 08:11 Dose: 0.5 mg Trazodone HCl (Trazodone Hcl 50 Mg Tablet) 50 mg PO BEDTIME PRN PRN Reason: Insomnia Last Admin: 03/09/25 20:54 Dose: 50 mg Allergies Allergies Allergy/AdvReac Type Severity Reaction Status Date / Time niacin Allergy Unknown Verified 03/04/25 15:23 shellfish derived Allergy Unknown Verified 03/04/25 15:23 Assessment & Plan Assessment & Plan (1) Vascular dementia with behavior disturbance: Status: Acute Code(s): F01.518 - Vascular dementia, unspecified severity, with other behavioral disturbance Plan Mr. Lau is a 80 year-old male with hx of vascular dementia, who was brought on 03/03 to [facility] due to increase delusional ideas of being responsible for world events and being able to change number in pressure machine at the hospital. He was started on risperidone while at [place]. He currently does not present with delusions. He is focused on world events and seems to have in depth grasp about given his personal experience and background in history. It is possible more delusional connection to world events has decrease since started on risperidone. MOCA/ACL show moderate/severe cognitive impairments in high functions of the brain that include executive function. PLAN 03/08 increase risperidone 0.5mg po BID. 03/09 continue tx 03/10 continue tx. 03/11: safe, stable. continue current mgmt. asking for family mtg for dispo planning and to discharge to care of his son in [facility]. 03/12 continue tx. 03/13: continue current mgmt. stable. 03/14: as for yesterday. 03/15: in good spirits, looking forward to family mtg, which he believes is happening tomorrow. Reason for continued inpatient stay Substantial Risk for: inability to function Time Spent With Patient Time: Total time managing care of this patient today ____ minutes.
[2025-03-15 20:00] VITALS: BP 162/79; PULSE 89; RESP 16; TEMP 36.6; O2SAT 96
[2025-03-16 07:57] VITALS: BP 130/80; PULSE 87; RESP 18; TEMP 36.4; O2SAT 95
[2025-03-16] MEDS: Metoprolol Succinate ER 25 MG TAB.ER.24H PO (08:15)
--- NOTE | 2025-03-16 09:15 | P.PNPSI_ITS ---
Subjective Subjective Date of Service: 03/16/25 Reason For Visit: Delusional d/o Subjective Notes: Conditional Voluntary Interim History: pt slept through the night. No overt psychosis or delusions. He is taking medications as prescribed. No SI/HI. We had family meeting discuss findings of memory/cog assessments and aftercare plan. No behavioral concerns. Medication Compliance: Yes Review of Systems Review of Systems Denies any shortness of breath, chest pain, dizziness, lightheadedness, abdominal pain or discomfort, nausea vomiting or diarrhea Mental Status Exam Mental Status Exam Narrative: Appearance: wearing casual clothing, fair hygiene, in NAD behavior: cooperative, friendly Psychomotor: no agitation or retardation noted Speech: clear, talkative, but not pressured, spontaneous TP: tangential TC: feeling well here, dispo planning Mood: good Affect: congruent SI: none expressed HI: none expressed VH/AH: no overt signs Delusions: no overt delusional content Insight/judgment: fair x 2, Memory/cog: alert, oriented to place, month, year. MOCA 20/, ACL 3.6 Diagnostics Vital Signs (24Hr): Vital Signs - 24 hr 03/15/25 20:00 03/16/25 07:57 Temperature 97.9 F 97.6 F Pulse Rate 89 87 Respiratory Rate 16 18 Blood Pressure 162/79 H 130/80 Pulse Oximetry 96 95 Oxygen Delivery Method Room Air Room Air BMI result Body Mass Index 25.2 Labs 03/05/25 07:41 Medications Medications Current Medications Acetaminophen (Acetaminophen 325 Mg Tablet) 650 mg PO Q6H PRN PRN Reason: Headache/Pain, Scale 1-10 Al Hydroxide/Mg Hydroxide (Magnesium Hydrox/Alum Hydrox 30 Ml Oral.Susp) 30 ml PO Q6H PRN PRN Reason: Heartburn/Nausea Aspirin (Aspirin 81 Mg Tab.Chew) 81 mg PO DAILY [facility] Last Admin: 03/16/25 08:15 Dose: 81 mg Atorvastatin Calcium (Atorvastatin Calcium 20 Mg Tablet) 20 mg PO BEDTIME [facility] Last Admin: 03/15/25 19:53 Dose: 20 mg Magnesium Hydroxide (Milk Of Magnesia 30 Ml Oral.Susp) 30 ml PO DAILY PRN PRN Reason: Constipation Metoprolol Succinate (Metoprolol Succinate Er 25 Mg Tab.Er.24h) 25 mg PO DAILY [facility]; Protocol Last Admin: 03/16/25 08:15 Dose: 25 mg Risperidone (Risperidone 0.25 Mg Tablet) 0.5 mg PO BID [facility] Last Admin: 03/16/25 08:15 Dose: 0.5 mg Trazodone HCl (Trazodone Hcl 50 Mg Tablet) 50 mg PO BEDTIME PRN PRN Reason: Insomnia Last Admin: 03/09/25 20:54 Dose: 50 mg Allergies Allergies Allergy/AdvReac Type Severity Reaction Status Date / Time niacin Allergy Unknown Verified 03/04/25 15:23 shellfish derived Allergy Unknown Verified 03/04/25 15:23 Assessment & Plan Assessment & Plan (1) Vascular dementia with behavior disturbance: Status: Acute Code(s): F01.518 - Vascular dementia, unspecified severity, with other behavioral disturbance Plan Mr. Lau is a 80 year-old male with hx of vascular dementia, who was brought on 03/03 to [facility] due to increase delusional ideas of being responsible for world events and being able to change number in pressure machine at the hospital. He was started on risperidone while at [place]. He currently does not present with delusions. He is focused on world events and seems to have in depth grasp about given his personal experience and background in history. It is possible more delusional connection to world events has decrease since started on risperidone. MOCA/ACL show moderate/severe cognitive impairments in high functions of the brain that include executive function. PLAN 03/08 increase risperidone 0.5mg po BID. 03/09 continue tx 03/10 continue tx. 03/11: safe, stable. continue current mgmt. asking for family mtg for dispo planning and to discharge to care of his son in [facility]. 03/12 continue tx. 03/13: continue current mgmt. stable. 03/14: as for yesterday. 03/15: in good spirits, looking forward to family mtg, which he believes is happening tomorrow. 03/16 continue tx. plan to d/c 03/19/25 Reason for continued inpatient stay Substantial Risk for: inability to function Time Spent With Patient Time: Total time managing care of this patient today ____ minutes.
[2025-03-16 20:24] VITALS: BP 155/74; PULSE 71; RESP 16; TEMP 35.9; O2SAT 97
[2025-03-17 08:17] VITALS: BP 141/77; PULSE 84; RESP 18; TEMP 36.2; O2SAT 98
[2025-03-17] MEDS: Metoprolol Succinate ER 25 MG TAB.ER.24H PO (08:37)
--- NOTE | 2025-03-17 16:52 | P.PNPSI_ITS ---
Subjective Subjective Date of Service: 03/17/25 Reason For Visit: Delusional d/o Subjective Notes: Conditional Voluntary Interim History: Pt continues to present as calm. hoping both adult children were on same page or better terms but accepting that both love him and want the best for him. No SI/HI. No overt delusional content. looking forward to return back home. Review of Systems Review of Systems Denies any shortness of breath, chest pain, dizziness, lightheadedness, abdominal pain or discomfort, nausea vomiting or diarrhea Mental Status Exam Mental Status Exam Narrative: Appearance: wearing casual clothing, fair hygiene, in NAD behavior: cooperative, friendly Psychomotor: no agitation or retardation noted Speech: clear, talkative, but not pressured, spontaneous TP: tangential TC: feeling well here, dispo planning Mood: good Affect: congruent SI: none expressed HI: none expressed VH/AH: no overt signs Delusions: no overt delusional content Insight/judgment: fair x 2, Memory/cog: alert, oriented to place, month, year. MOCA 20/30, ACL 3.6 Diagnostics Vital Signs (24Hr): Vital Signs - 24 hr 03/16/25 20:24 03/17/25 08:17 Temperature 96.7 F L 97.2 F Pulse Rate 71 84 Respiratory Rate 16 18 Blood Pressure 155/74 H 141/77 H Pulse Oximetry 97 98 Oxygen Delivery Method Room Air Room Air BMI result Body Mass Index 25.2 Labs 03/05/25 07:41 Medications Medications Current Medications Acetaminophen (Acetaminophen 325 Mg Tablet) 650 mg PO Q6H PRN PRN Reason: Headache/Pain, Scale 1-10 Al Hydroxide/Mg Hydroxide (Magnesium Hydrox/Alum Hydrox 30 Ml Oral.Susp) 30 ml PO Q6H PRN PRN Reason: Heartburn/Nausea Aspirin (Aspirin 81 Mg Tab.Chew) 81 mg PO DAILY [facility] Last Admin: 03/17/25 08:37 Dose: 81 mg Atorvastatin Calcium (Atorvastatin Calcium 20 Mg Tablet) 20 mg PO BEDTIME [facility] Last Admin: 03/16/25 19:47 Dose: 20 mg Magnesium Hydroxide (Milk Of Magnesia 30 Ml Oral.Susp) 30 ml PO DAILY PRN PRN Reason: Constipation Metoprolol Succinate (Metoprolol Succinate Er 25 Mg Tab.Er.24h) 25 mg PO DAILY [facility]; Protocol Last Admin: 03/17/25 08:37 Dose: 25 mg Risperidone (Risperidone 0.25 Mg Tablet) 0.5 mg PO BID [facility] Last Admin: 03/17/25 08:36 Dose: 0.5 mg Trazodone HCl (Trazodone Hcl 50 Mg Tablet) 50 mg PO BEDTIME PRN PRN Reason: Insomnia Last Admin: 03/09/25 20:54 Dose: 50 mg Allergies Allergies Allergy/AdvReac Type Severity Reaction Status Date / Time niacin Allergy Unknown Verified 03/04/25 15:23 shellfish derived Allergy Unknown Verified 03/04/25 15:23 Assessment & Plan Assessment & Plan (1) Vascular dementia with behavior disturbance: Status: Acute Code(s): F01.518 - Vascular dementia, unspecified severity, with other behavioral disturbance Plan Mr. Lau is a 80 year-old male with hx of vascular dementia, who was brought on 03/03 to [facility] due to increase delusional ideas of being responsible for world events and being able to change number in pressure machine at the hospital. He was started on risperidone while at [place]. He currently does not present with delusions. He is focused on world events and seems to have in depth grasp about given his personal experience and background in history. It is possible more delusional connection to world events has decrease since started on risperidone. MOCA/ACL show moderate/severe cognitive impairments in high functions of the brain that include executive function. PLAN 03/08 increase risperidone 0.5mg po BID. 03/09 continue tx 03/10 continue tx. 03/11: safe, stable. continue current mgmt. asking for family mtg for dispo planning and to discharge to care of his son in [facility]. 03/12 continue tx. 03/13: continue current mgmt. stable. 03/14: as for yesterday. 03/15: in good spirits, looking forward to family mtg, which he believes is happening tomorrow. 03/16 continue tx. plan to d/c 03/19/2503/17 continue tx. plan to d/c , 03/19/25. Reason for continued inpatient stay Substantial Risk for: inability to function Time Spent With Patient Time: Total time managing care of this patient today ____ minutes.
[2025-03-17 20:18] VITALS: BP 133/76; PULSE 70; RESP 14; TEMP 36.1; O2SAT 97
[2025-03-18 08:30] VITALS: BP 114/73; PULSE 68; RESP 18; TEMP 35.8; O2SAT 98
[2025-03-18] MEDS: Metoprolol Succinate ER 25 MG TAB.ER.24H PO (08:32)
--- NOTE | 2025-03-18 12:20 | P.PNPSI_ITS ---
Subjective Subjective Date of Service: 03/18/25 Reason For Visit: Delusional d/o Subjective Notes: Chau Warning and Conditional Voluntary Healthcare Proxy: Yes Guardianship: No Medical Problems Affecting Mental Status: No Interim History: Medical record and nursing notes reviewed; case discussed during rounds with team, and met with patient for supportive therapy/psychoeducation, as well as medication management. Per chart review patient slept for 8 hours, improve in appetite. Medication compliant and denies any side effects he is knowledgeable about medications that he is currently taking. He asked questions regarding his diagnosis and agree with nurse's when I review with him. Denies any suicidal thoughts homicidal thoughts of voices. Do not appear to be psychotic. Do not make any delusional statements. He is alert and oriented x4. Attended groups and visible in common areas. Plans not to involve too much on Internet that overwhelmed him prior to come to the hospital. Per social sciences professor, daughter will pick him up at 14:00 tomorrow. Patient is ready for discharge. I am working on send medication to preferred pharmacy at [facility] in [place]. Medication Compliance: Yes Side effects from medications: No Attending Groups: Yes Review of Systems Acute medical concerns: No Medical Review of Systems: unchanged Review of Systems Review of Systems Constitutional: Denies fatigue and Denies fever(s) Cardiovascular: Denies chest pain and Denies dyspnea Respiratory: Denies dyspnea Gastrointestinal: Denies abdominal pain Psychiatric: denies suicidal ideation Endocrine: Denies fatigue Yes all other systems are reviewed and are negative Mental Status Exam Mental Status Exam Narrative: Appearance: wearing casual clothing, fair hygiene, in NAD behavior: cooperative, friendly Psychomotor: no agitation or retardation noted Speech: clear, talkative, but not pressured, spontaneous TP: organized TC: feeling well here, dispo planning Mood: relaxed Affect: congruent SI: none expressed HI: none expressed VH/AH: no overt signs Delusions: no overt delusional content Insight/judgment: improved, good Memory/cog: alert, oriented to place, month, year. MOCA 20/, ACL 3.6 Diagnostics Vital Signs (24Hr): Vital Signs - 24 hr 03/17/25 20:18 03/18/25 08:30 Temperature 96.9 F 96.4 F L Pulse Rate 70 68 Respiratory Rate 14 18 Blood Pressure 133/76 114/73 Pulse Oximetry 97 98 Oxygen Delivery Method Room Air Room Air BMI result Body Mass Index 25.2 Labs 03/05/25 07:41 Medications Medications Current Medications Acetaminophen (Acetaminophen 325 Mg Tablet) 650 mg PO Q6H PRN PRN Reason: Headache/Pain, Scale 1-10 Al Hydroxide/Mg Hydroxide (Magnesium Hydrox/Alum Hydrox 30 Ml Oral.Susp) 30 ml PO Q6H PRN PRN Reason: Heartburn/Nausea Aspirin (Aspirin 81 Mg Tab.Chew) 81 mg PO DAILY [facility] Last Admin: 03/18/25 08:33 Dose: 81 mg Atorvastatin Calcium (Atorvastatin Calcium 20 Mg Tablet) 20 mg PO BEDTIME [facility] Last Admin: 03/17/25 19:54 Dose: 20 mg Magnesium Hydroxide (Milk Of Magnesia 30 Ml Oral.Susp) 30 ml PO DAILY PRN PRN Reason: Constipation Metoprolol Succinate (Metoprolol Succinate Er 25 Mg Tab.Er.24h) 25 mg PO DAILY [facility]; Protocol Last Admin: 03/18/25 08:32 Dose: 25 mg Risperidone (Risperidone 0.25 Mg Tablet) 0.5 mg PO BID [facility] Last Admin: 03/18/25 08:32 Dose: 0.5 mg Trazodone HCl (Trazodone Hcl 50 Mg Tablet) 50 mg PO BEDTIME PRN PRN Reason: Insomnia Last Admin: 03/09/25 20:54 Dose: 50 mg Allergies Allergies Allergy/AdvReac Type Severity Reaction Status Date / Time niacin Allergy Unknown Verified 03/04/25 15:23 shellfish derived Allergy Unknown Verified 03/04/25 15:23 Assessment & Plan Assessment & Plan (1) Vascular dementia with behavior disturbance: Status: Acute Code(s): F01.518 - Vascular dementia, unspecified severity, with other behavioral disturbance Plan Mr. Lau is a 80 year-old male with hx of vascular dementia, who was brought on 03/03 to [facility] due to increase delusional ideas of being responsible for world events and being able to change number in pressure machine at the hospital. He was started on risperidone while at [place]. He currently does not present with delusions. He is focused on world events and seems to have in depth grasp about given his personal experience and background in history. It is possible more delusional connection to world events has decrease since started on risperidone. MOCA/ACL show moderate/severe cognitive impairments in high functions of the brain that include executive function. PLAN 03/08 increase risperidone 0.5mg po BID. 03/09 continue tx 03/10 continue tx. 03/11: safe, stable. continue current mgmt. asking for family mtg for dispo planning and to discharge to care of his son in [place]. 03/12 continue tx. 03/13: continue current mgmt. stable. 03/14: as for yesterday. 03/15: in good spirits, looking forward to family mtg, which he believes is happening tomorrow. 03/16 continue tx. plan to d/c 03/19/2503/17 continue tx. plan to d/c , 03/19/25. 03/18/25: Meeting went well yesterday. Patient is calm cooperative and pleasant upon approach. Denies side effects from medication. No issue with sleep or appetite. Walking with steady gait. No fall episode. No behavior or safety concerns. Daughter will pick him up by 14:00 tomorrow on 03/19. Working on sending medication to preferred pharmacy in [facility] in [place]. Patient educated on: diagnosis, medication risk/benefits and therapeutic strategies Informed Consent: understands Reason for continued inpatient stay Substantial Risk for: med/psych decompensation Time Spent With Patient Time: Total time managing care of this patient today ____ minutes.
[2025-03-18 20:00] VITALS: BP 132/64; PULSE 69; RESP 14; TEMP 36.7; O2SAT 97
[2025-03-19 08:00] VITALS: BP 113/75; PULSE 75; RESP 16; TEMP 36.4; O2SAT 98
[2025-03-19 08:19] VITALS: BP 113/75; PULSE 75
[2025-03-19] MEDS: Metoprolol Succinate ER 25 MG TAB.ER.24H PO (08:19)
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
--- NOTE | 2025-03-19 14:22 | PC.NURSE ---
Patient was aware of discharge, reported readiness for discharge. Discharge instructions given to the patient and his daughter Laura. Tinajero left the unit accompanied by his daughter at 14:15. They took patient's belongings with them.
== END 2025-03-19 14:15 | disposition home or self-care (01) | DRG 884 ==
PROVIDERS: Social Worker; Admitting Provider Psychiatry & Neurology Psychiatry; Visit Provider Psychiatry & Neurology Psychiatry
DX: F01.518 Vascular dementia, unspecified severity, with other behavioral disturbance (principal); I10 Essential (primary) hypertension; I25.10 Atherosclerotic heart disease of native coronary artery without angina pectoris; Z79.82 Long term (current) use of aspirin; Z79.899 Other long term (current) drug therapy
CPT/HCPCS: 36415; 80053; 80061; 82607; 82746; 83036; 84443

== ENCOUNTER → 2025-03-04 13:07 | Outpatient (BNV) | payer MEDICARE, SELFPAY | PROVIDERS: Admitting Provider Psychiatry & Neurology Psychiatry; Visit Provider Social Worker | DX: F01.518 Vascular dementia, unspecified severity, with other behavioral disturbance (principal) | CPT/HCPCS: 90792; 99231; 99232 ==

== ENCOUNTER → 2025-03-04 13:07 | Outpatient (BNV) | payer MEDICARE, SELFPAY | PROVIDERS: Admitting Provider Psychiatry & Neurology Psychiatry; Visit Provider Nurse Practitioner Family | DX: I10 Essential (primary) hypertension (principal) | CPT/HCPCS: 99221 ==